=== PATIENT | female | born 1980 | race African-American/Black ===

== ENCOUNTER 2016-08-29 17:58 | Emergency (ER) | payer MEDICAID ==
[~2016-08-29] VITALS: Ht 154.9 cm; Wt 99.8 kg
[~2016-08-29 17:58] MED LIST: IBUPROFEN600 MG ORAL; KEFLEX500 MG ORAL; MECLIZINE HCL25 MG ORAL; ZOFRAN ODT4 MG ORAL
[2016-08-29 18:32] VITALS: BP 113/75
--- NOTE | 2016-08-29 19:27 | Emergency Room Report ---
History of Present Illness General Chief Complaint: Back Pain-No Injury Source: Patient Present Illness HPI 36 YO Female presents to the ED c/o Left sided low back pain described as "soreness, and tightness" pt. states twisting of trunk exacerbates pain, and full forward flexion. no recent spinal procedures, no fevers, chills, n/v/ abdominal pain, dysuria, frequency, the pain does not radiate, denies hematuria. no hx of neoplastic disease. Denies CP, Palpitations, LOC, AMS, dizziness, Changes in Vision, Sensation, paresthesias, or a sudden severe headache. Allergies: Coded Allergies: CIPROFLOXACIN (Verified Allergy, Unknown, 06/23/15) Uncoded Allergies: CIPRO (Allergy, Unknown, 06/22/15) Patient History Past Medical History: see triage record Past Surgical History: none Pertinent Family History: none Last Menstrual Period: 08/28/16 Now: No Reviewed Nursing Documentation: PMH: Agreed, PSxH: Agreed Nursing Documentation-PMH Past Medical History: No History, Except For Review of Systems All Other Systems: negative except mentioned in HPI Physical Exam Vital Signs Date Time Temp Pulse Resp B/P Pulse Ox O2 Delivery O2 Flow Rate FiO2 08/29/16 18:32 98.1 90 17 113/75 100 Room Air Sp02 EP Interpretation: reviewed, normal General Appearance: no apparent distress, alert, GCS 15, non-toxic Head: normocephalic, atraumatic Eyes: bilateral eye PERRL, bilateral eye normal inspection ENT: hearing grossly normal, normal pharynx, no angioedema, normal voice Neck: full range of motion, supple/symm/no masses Respiratory: chest non-tender, lungs clear, normal breath sounds, speaking full sentences Cardiovascular #1: regular rate, rhythm, no edema Rectal: deferred Genitourinary: normal inspection, no CVA tenderness Musculoskeletal: back normal, gait/station normal, normal range of motion, non- tender, tender - left paraspinal TTP, to superficial touch, FROM with pain, no obvious deformity, no midline ttp. no erythema Neurologic: alert, oriented x3, responsive, motor strength/tone normal, sensory intact, cerebellar normal, normal gait, speech normal Psychiatric: judgement/insight normal, memory normal, mood/affect normal Skin: normal color, no rash, warm/dry, well hydrated Lymphatic: no adenopathy Medical Decision Making PA Attestation Dr. Zarate is my supervising Physician whom patient management has been discussed with. Diagnostic Impression: Primary Impression: Muscle strain Additional Impressions: Muscle spasm of back UTI (urinary tract infection) Qualified Codes: N30.00 - Acute cystitis without hematuria ER Course Pt. presents to the ED c/o Left sided low back pain described as "soreness, and tightness" pt. states twisting of trunk exacerbates pain, and full forward flexion. no recent spinal procedures, no fevers, chills, n/v/ abdominal pain, dysuria, frequency, the pain does not radiate, denies hematuria. no hx of neoplastic disease. Ddx considered but are not limited to Fracture, dislocation, contusion, epidural abscess, Sprain/Strain/Spasm Vital signs: are WNL, pt. is afebrile H&PE are most consistent with muscle spasm, ORDERS: -UA: few bacteria, wbc's and few leukocyte esterase, will treat for UTI ED INTERVENTIONS: -350mg Soma PO -Toradol IM DISCHARGE: At this time pt. is stable for d/c to home. Will provide printed patient care instructions, and any necessary prescriptions. Care plan and follow up instructions have been discussed with the patient prior to discharge. Labs Test 08/29/16 18:30 Urine Color Pale yellow Urine Appearance Clear Urine pH 6.5 (4.5-8.0) Urine Specific [place] 1.015 (1.005-1.035) Urine Protein Negative (NEGATIVE) Urine Glucose (UA) Negative (NEGATIVE) Urine Ketones 2+ (NEGATIVE) Urine Occult Blood Negative (NEGATIVE) Urine Nitrite Negative (NEGATIVE) Urine Bilirubin Negative (NEGATIVE) Urine Urobilinogen Normal MG/DL (0.0-1.0) Urine Leukocyte Esterase 1+ (NEGATIVE) Urine RBC 0-2 /HPF (0 - 2) Urine WBC 2-4 /HPF (0 - 2) Urine Squamous Epithelial Cells Few /LPF (NONE/OCC) Urine Bacteria Few /HPF (NONE) Last Vital Signs Date Time Temp Pulse Resp B/P Pulse Ox O2 Delivery O2 Flow Rate FiO2 08/29/16 18:32 98.1 90 17 113/75 100 Room Air Disposition: HOME, SELF-CARE Condition: Stable Scripts Nitrofurantoin Monohyd/M-Cryst* (MACROBID 100 MG*) 100 Mg Capsule 100 MG ORAL EVERY 12 HOURS for 5 Days, #10 CAP Prov: Yina Del Valle 08/29/16 Ibuprofen* (MOTRIN*) 600 Mg Tablet 600 MG ORAL THREE TIMES A DAY, #30 TAB 0 Refills Prov: Yina Del Valle 08/29/16 Cyclobenzaprine Hcl* (FLEXERIL*) 10 Mg Tablet 10 MG ORAL THREE TIMES A DAY for 7 Days, #21 TAB Prov: Yina Del Valle 08/29/16 Referrals: [facility]ERR[facility] (PCP) Patient Instructions: Back Pain, Adult, Muscle Cramps and Spasms, Ljpu-[id number] Additional Instructions: Take medications as directed. Follow up with PCP in 3-5 days Return sooner to ED if new symptoms occur, or current symptoms become worse. Do not drink alcohol, drive, or operate heavy machinery while taking Flexeril/ muscle relaxer as this may cause drowsiness. - Please note that this Emergency Department Report was dictated using [employer] speech language technology software, occasionally this can lead to erroneous entry secondary to interpretation by the dictation equipment. Yina Del Valle August 29, 2016 19:27
[2016-08-29] MEDS ORDERED: Ketorolac 60mg Inj IM ONE (19:30)
[2016-08-29] MEDS ORDERED: IBUPROFEN600 MG ORAL (19:35)
[2016-08-29] MEDS ORDERED: CYCLOBENZAPRINE10 MG ORAL (19:35)
[2016-08-29 20:11] LABS: APPEARANCE,URINE CLEAR; KETONES,URINE 2+ (NEGATIVE); LEUKOCYTE ESTERASE ,URINE 1+ (NEGATIVE); NITRITE,URINE NEGATIVE (NEGATIVE); PH,URINE 6.5 (4.5-8.0); PROTEIN,URINE NEGATIVE (NEGATIVE); UROBILINOGEN,URINE NORMAL MG/DL (0.0-1.0)
[2016-08-29 20:14] VITALS: BP 121/79
[2016-08-29 20:15] LABS: BACTERIA,URINE FEW /HPF; RBC,URINE 0-2 /HPF (0 - 2); SQUAMOUS EPITHELIAL CELL,UR FEW /LPF (NONE/OCC)
[2016-08-29] MEDS ORDERED: NITROFURANTOIN100 M2 ORAL (20:26)
[2016-08-29 20:46] VITALS: BP 121/79
== END 2016-08-29 20:46 | disposition home or self-care (01) ==
LOC: EMR 18:58
DX: S39.012A Strain of muscle, fascia and tendon of lower back, initial encounter (principal); X50.1XXA Overexertion from prolonged static or awkward postures, initial encounter; Y92.89 Other specified places as the place of occurrence of the external cause; N39.0 Urinary tract infection, site not specified
CPT/HCPCS: 81003; 96372; 99284